=== PATIENT | male | born 1985 ===

== ENCOUNTER 2017-10-25 04:48 | Day surgery (SDC) | payer OTHER | END 2017-10-25 11:30 | disposition home or self-care (01) | LOC: CIR.AMB 04:48 | DX: K40.90 Unilateral inguinal hernia, without obstruction or gangrene, not specified as recurrent (principal) ==

== ENCOUNTER 2021-09-09 17:20 | Emergency (ER) | payer OTHER ==
[~2021-09-09] VITALS: Ht 172.7 cm; Wt 103.4 kg
== END 2021-09-09 21:11 | disposition home or self-care (01) ==
LOC: ER 17:20
DX: L40.59 Other psoriatic arthropathy (principal); M25.561 Pain in right knee

== ENCOUNTER 2022-01-16 22:55 | Emergency (ER) | payer OTHER ==
[~2022-01-16] VITALS: Ht 172.7 cm; Wt 103.4 kg
[2022-01-17] MEDS ORDERED: LEVOFLOXACIN750 MG PO (05:15)
[2022-01-17] MEDS ORDERED: DOLOGEN CAPLET1 EACH PO (05:15)
[2022-01-17] MEDS ORDERED: TUSNEL LIQUID178 ML PO (05:15)
[2022-01-17] MEDS ORDERED: XOPENEX0.63 MG/3 IH (05:15)
[2022-01-17] MEDS ORDERED: MEDROLPACK PO (05:15)
== END 2022-01-17 05:31 | disposition home or self-care (01) ==
LOC: ER 22:55
DX: J06.9 Acute upper respiratory infection, unspecified (principal); J18.8 Other pneumonia, unspecified organism; Z20.822 Contact with and (suspected) exposure to COVID-19